=== PATIENT | male | born 1950 | race Caucasian/White ===

== ENCOUNTER 2016-07-09 06:19 | Day surgery (SDC) | payer MEDICARE, OTHER ==
[2016-07-08 09:06] LABS: HEMATOCRIT 28.6 % (40.0-51.0); HEMOGLOBIN 9.3 g/dL (13.6-17.8)
[2016-07-08 09:25] LABS: BUN (BLOOD UREA NITROGEN) 43 MG/DL (6-23); CALCIUM, SERUM 9.1 MG/DL (8.5-10.4); CHLORIDE, SERUM 109 MMOL/L (96-112); CO2 (CARBON DIOXIDE) 24 MMOL/L (24-34); CREATININE 3.57 MG/DL (0.70-1.30); GFR AFRICAN AMERICAN 19 ML/MIN (>=60); GFR NON AFRICAN AMERICAN 17 ML/MIN (>=60); GLUCOSE, SERUM 170 MG/DL (60-99); POTASSIUM, SERUM 4.5 MMOL/L (3.5-5.3); SODIUM, SERUM 141 MMOL/L (135-148)
--- NOTE | ~2016-07-09 | OP ---
Record Of Operation [facility] [address] [place]. [address] NAME: TOSHA ELLIOTT : 48 STATUS : REG [facility]#: [id number] AGE: 66 ADM/REG DATE : 07/09/16 MR#: [id number] REPORT SERV DATE: 07/09/16 DICTATED BY: CORKY CASTILLO III DATE: 07/09/16 REPORT STATUS : Draft TRANSCRIBED BY: MODL DATE: 07/09/16 DATE OF PROCEDURE: 07/09/2016 PREOPERATIVE DIAGNOSES: 1. Urinary frequency. 2. Microhematuria. POSTOPERATIVE DIAGNOSES: 1. Bulbar urethral stricture. 2. Visually obstructive prostate. PROCEDURE: Cystoscopy and urethral dilation. SURGEON: Corky Castillo M.D. ANESTHESIA: General. SPECIMENS: None. DRAINS: None. INDICATION: Mr. Elliott is a 66-year-old white male who has urinary frequency. He is on Flomax that has recently been increased to two a day with some improvement. He has also been found to have microhematuria. Consent is obtained for cystoscopy to evaluate his bladder outlet, as well as to inspect the bladder. PROCEDURE IN DETAIL: After consent was obtained, the patient was identified and was taken to the OR and put to sleep. He was positioned in the low lithotomy position and prepped and draped in usual fashion. The 22-Slovenian cystoscope was made ready and inserted into the urethra with the obturator in place. It was then advanced under direct vision with a 30- degree viewing lens. It was of wide-caliber urethral stricture in the bulbar urethra. I was able to gently advance the scope through this area without undue force. The prostatic urethra was visually obstructed. The obstruction was trilobar. The bladder was inspected. There were no tumors, stones, or foreign bodies. The bladder wall was slightly trabeculated. The guidewire was then passed into the bladder and the cystoscope was removed. The Jang sounds were then used to dilate the urethral stricture to 28-Slovenian. The wire was then removed. The scope was reinserted and the bladder was drained. The patient was awakened and taken to recovery in stable condition. PH/MODL Corky Castillo III, M.D. Record Of Operation [address] [address] NAME: TOSHA ELLIOTT : 48 STATUS : REG [facility] PAT#: [id number] AGE: 66 ADM/REG DATE : 07/09/16 MR#: [id number] REPORT SERV DATE: 07/09/16 DICTATED BY: CORKY CASTILLO III DATE: 07/09/16 REPORT STATUS : Draft TRANSCRIBED BY: MODL DATE: 07/09/16 / [id number] CC: Corky Castillo III, M.D.
[~2016-07-09 06:19] MED LIST: ASAB PO; C5; FLOMAX4 PO; FLONASE NAS; GLUCOPHAGE1000 MG PO; GLUCXL10 PO; HYDROCHLOROT50 MG PO; INSNOV7030 SC; KLOR-CON M2020 MEQ PO; LEVOTHYROXIN50 MCG PO; LOP100 PO; LOTREL1 CA3 PO; PCET PO; PRILOSEC40 MG PO; VICTOZA18 MG/3 ML SC; XALAT OPH; Z300 PO
== END 2016-07-09 10:45 | disposition home or self-care (01) ==
LOC: SDC 06:19
PROVIDERS: Urology
PROC: 0T7D8ZZ Dilation of Urethra, Via Natural or Artificial Opening Endoscopic (ICD-10-PCS; principal; 2016-07-09 07:45)
DX: N35.8 Other urethral stricture (principal); N40.1 Benign prostatic hyperplasia with lower urinary tract symptoms; N13.8 Other obstructive and reflux uropathy; N18.4 Chronic kidney disease, stage 4 (severe); I12.9 Hypertensive chronic kidney disease with stage 1 through stage 4 chronic kidney disease, or unspecified chronic kidney disease; G47.33 Obstructive sleep apnea (adult) (pediatric); M19.90 Unspecified osteoarthritis, unspecified site; D63.1 Anemia in chronic kidney disease; E11.22 Type 2 diabetes mellitus with diabetic chronic kidney disease; E11.40 Type 2 diabetes mellitus with diabetic neuropathy, unspecified; E66.9 Obesity, unspecified; Z68.41 Body mass index [BMI] 40.0-44.9, adult; Z99.89 Dependence on other enabling machines and devices; Z87.442 Personal history of urinary calculi; Z79.82 Long term (current) use of aspirin; Z79.51 Long term (current) use of inhaled steroids; Z79.84 Long term (current) use of oral hypoglycemic drugs; Z79.4 Long term (current) use of insulin; Z79.899 Other long term (current) drug therapy; Z98.41 Cataract extraction status, right eye; Z98.42 Cataract extraction status, left eye; Z96.1 Presence of intraocular lens; Z98.890 Other specified postprocedural states; Z96.652 Presence of left artificial knee joint
CPT/HCPCS: 80048; 82962; 85014; 85018; 93005; C1729; J0330; J1170; J2405; J3010